=== PATIENT | male | born 1980 | race Hispanic/Latino ===

== ENCOUNTER 2019-07-08 08:05 | Outpatient (CLI) | payer OTHER ==
--- NOTE | 2019-07-08 10:29 | MRI ---
MRI OF THE CERVICAL SPINE WITHOUT CONTRAST: INDICATION: History of cervical radiculopathy. COMPARISON: None. FINDINGS: Visualized aspects of the posterior fossa appear within normal limits. The prevertebral and paravert ebral soft tissues are normal-appearing. No acute fracture is evident. Spinal alignment is preserve d. At C2-C3, there is no appreciable central canal or neural foraminal narrowing. At C3-4, there is no appreciable central canal or neural foraminal narrowing. At C4-5, there is no appreciable central canal or neural foraminal narrowing. There is a very small central disk protrusion. At C5-6, there is a small central disk protrusion, but no appreciable central canal or neural foramin al narrowing. At C6-7, there is no appreciable central canal or neural foraminal narrowing. At C7-T1, there is a left paracentral to left foraminal disk protrusion causing some mild ventral eff acement of the left ventral lateral spinal cord. There is severe narrowing of the left neural forami na with probable impingement of the exiting nerve root at C7-T1. This is best seen on images 11 and 10 of series 3. IMPRESSION: 1. Prominent left paracentral to left foraminal disk protrusion at C7-T1 causing some left ventrolat eral effacement of the spinal cord with severe narrowing of the left C7 neural foramen with probable impingement of the exiting nerve root. Recommend correlation with the patient's clinical symptoms. 2. Mild disk degenerative disease of the cervical spine. POS: [id number]
== END 2019-07-08 08:06 | disposition home or self-care (01) ==
LOC: TBSIIMAG 08:05
PROVIDERS: ATTEND Neurological Surgery
DX: M50.10 Cervical disc disorder with radiculopathy, unspecified cervical region (principal); M50.23 Other cervical disc displacement, cervicothoracic region; M48.02 Spinal stenosis, cervical region
CPT/HCPCS: 72141

== ENCOUNTER 2021-03-12 15:51 | Inpatient (IN) | payer OTHER, SELFPAY ==
[2021-03-12 16:36] LABS: ALT (SGPT) 23 U/L (8-55); AST (SGOT) 16 U/L (5-34); Albumin 4.7 g/dL (3.5-5.0); Alkaline Phosphatase 102 U/L (40-110); Anion Gap 18 mmol/L (10-20); BUN (Urea Nitrogen) 19 mg/dL (8.9-20.6); Bilirubin, Total 0.5 mg/dL (0.2-1.2); Calc. Creatinine Clearance 0 mL/min (70-130); Carbon Dioxide 24 mmol/L (22-29); Chloride 104 mmol/L (98-107); Glucose 108 mg/dL (70-105); Potassium 4.3 mmol/L (3.5-5.1); Protein, Total 8.7 g/dL (6.0-8.3); Sodium 142 mmol/L (136-145)
[2021-03-12 17:20] LABS: Prothrombin Time 13.8 sec (12.0-14.7)
[2021-03-12 17:22] LABS: PTT 34.2 sec (22.9-36.1)
[2021-03-12] MEDS ORDERED: Piperacillin/Tazobactam 4.5 GM VIAL ONE (17:23)
[2021-03-12 17:35] LABS: #Lymphocytes 2.4 thou/uL (1.20-3.40); #Monocytes 0.8 thou/uL (0.11-0.59); #Neutrophils 6.5 thou/uL (1.40-6.50); %Eosinophils 0.2 % (0.0-10.0); %Lymphocytes 24.4 % (21.0-51.0); %Monocytes 8.2 % (0.0-10.0); %Neutrophils 67.2 % (42.0-75.0); Hemoglobin 15.3 g/dL (14.0-18.0); Mean Corpuscular HGB CONC 32.8 g/dL (32.0-36.0); Mean Corpuscular Hemoglobin 29.3 pg (27.0-31.0); Mean Corpuscular Volume 89.4 fL (78.0-98.0); Mean Platelet Volume 8.5 fL (7.4-10.4); Platelet Count 244 thou/uL (130-400); RBC Distribution Width 12.6 % (11.5-14.5); White Blood Cell (WBC) Count 9.7 thou/uL (4.8-10.8)
[2021-03-12] MEDS ORDERED: Bupivacaine PF 0.5% 30 ML VIAL ONE (17:51)
[2021-03-12] MEDS ORDERED: Xylocaine 1% w/ Epi 1:100K 10 ML VIAL ONE (17:51)
[2021-03-12] MEDS ORDERED: Fentanyl 100 MCG/2 ML VIAL ONE ×2 (18:04→19:54)
[2021-03-12] MEDS ORDERED: Succinylcholine 200 MG/10 ml SYRINGE FS ONE (18:32)
[2021-03-12] MEDS ORDERED: Rocuronium Bromide 10 MG/ML (10ML VIAL) ONE (18:32)
[2021-03-12] MEDS ORDERED: PROPOFOL 200 MG/20 ML VIAL ONE (18:32)
[2021-03-12] MEDS ORDERED: Ondansetron PF 4 MG/2 ML Vial ONE (18:32)
[2021-03-12] MEDS ORDERED: Ketorolac Tromethamine 30 MG/ML VIAL ONE (18:32)
[2021-03-12] MEDS ORDERED: Dexamethasone 20 MG/5 ML VIAL ONE (18:32)
[2021-03-12] MEDS ORDERED: Lidocaine 1% PF 5 ML VIAL ONE (18:32)
[2021-03-12 18:53] LABS: SARS-CoV-2 NAA Rapid Test Not Detected (NotDetected)
[2021-03-12] MEDS ORDERED: SUGAMMADEX SODIUM 200 MG/2 ML VIAL ONE (18:58)
[2021-03-12] MEDS ORDERED: Ondansetron HCl/PF 4 MG/2 ML Vial IVP PRN (19:19)
[2021-03-12] MEDS ORDERED: Promethazine HCl 25 MG/ML VIAL IM PRN (19:19)
[2021-03-12] MEDS ORDERED: Morphine Sulfate 2 MG/ML SYRINGE SLOW IVP PRN (19:19)
[2021-03-12] MEDS ORDERED: PACU-Morphine 4MG/ML VIAL SLOW IVP PRN (19:19)
[2021-03-12] MEDS ORDERED: Meperidine HCl/PF 25 MG/ML VIAL SLOW IVP PRN (19:19)
[2021-03-12] MEDS ORDERED: HYDROmorphone 2 MG/ML VIAL SLOW IVP PRN (19:19)
[2021-03-12] MEDS ORDERED: Promethazine HCl 25 MG/ML VIAL IVPB PRN (19:19)
[2021-03-12] MEDS ORDERED: hydrALAZINE 20 MG/ML VIAL SLOW IVP PRN (19:35)
[2021-03-12] MEDS ORDERED: Ondansetron PF 4 MG/2 ML Vial IVP PRN (19:35)
[2021-03-12] MEDS ORDERED: Morphine 4 MG/ML VIAL SLOW IVP PRN ×2 (19:35)
[2021-03-12] MEDS ORDERED: Ondansetron ODT 4 MG TAB PO PRN (19:35)
[2021-03-12] MEDS ORDERED: Meperidine HCl/PF 25 MG/ML VIAL ONE (19:54)
[2021-03-12] MEDS ORDERED: D5 1/2 NS w/20 mEq KCL 1,000 ML ONE (21:53)
[2021-03-12] MEDS ORDERED: Piperacillin/Tazobactam 3.375 GM VIAL ONE (21:59)
[2021-03-12] MEDS ORDERED: Sodium Chloride 0.9% 100 ML ONE (21:59)
[2021-03-12] MEDS: D5 1/2 NS w/20 mEq KCL 1,000 ML IV SCH (22:28)
[2021-03-12] MEDS: Piperacillin/Tazobactam 3.375 GM in Sodium Chloride 0.9% 100 ML IVPB SCH (22:28)
[2021-03-12] MEDS: Enoxaparin Sodium 40 MG/0.4 ML SYRINGE SC SCH (23:00)
[2021-03-13] MEDS ORDERED: Morphine 4 MG/ML VIAL ONE (02:20)
[2021-03-13] MEDS ORDERED: Sodium Chloride 0.9% 10 ML ONE ×2 (02:20→09:55)
[2021-03-13] MEDS ORDERED: Piperacillin/Tazobactam 3.375 GM VIAL ONE ×2 (05:45→13:59)
[2021-03-13] MEDS: Piperacillin/Tazobactam 3.375 GM in Sodium Chloride 0.9% 100 ML IVPB SCH ×3 (06:16→21:15)
[2021-03-13 06:53] LABS: #Lymphocytes 1.6 thou/uL (1.20-3.40); #Monocytes 0.7 thou/uL (0.11-0.59); #Neutrophils 9.3 thou/uL (1.40-6.50); %Basophils 0.3 % (0.0-1.0); %Eosinophils 0.1 % (0.0-10.0); %Lymphocytes 13.7 % (21.0-51.0); %Monocytes 6.1 % (0.0-10.0); %Neutrophils 79.8 % (42.0-75.0); Hemoglobin 13.6 g/dL (14.0-18.0); Mean Corpuscular HGB CONC 33.7 g/dL (32.0-36.0); Mean Corpuscular Hemoglobin 30.2 pg (27.0-31.0); Mean Corpuscular Volume 89.6 fL (78.0-98.0); Mean Platelet Volume 8.3 fL (7.4-10.4); Platelet Count 208 thou/uL (130-400); RBC Distribution Width 12.3 % (11.5-14.5); White Blood Cell (WBC) Count 11.6 thou/uL (4.8-10.8)
[2021-03-13] MEDS ORDERED: Ketorolac Tromethamine 30 MG/ML VIAL ONE (08:48)
[2021-03-13] MEDS: Pantoprazole 40 MG VIAL IVP SCH (09:38)
[2021-03-13] MEDS: D5 1/2 NS w/20 mEq KCL 1,000 ML IV SCH ×3 (15:00→21:15)
[2021-03-13] MEDS: Ketorolac Tromethamine 30 MG/ML VIAL IVP PRN ×2 (15:18→21:14)
[2021-03-13 15:24] VITALS: BMI 24.0
[2021-03-13] MEDS: Enoxaparin Sodium 40 MG/0.4 ML SYRINGE SC SCH (21:14)
[2021-03-14] MEDS: Piperacillin/Tazobactam 3.375 GM in Sodium Chloride 0.9% 100 ML IVPB SCH ×2 (05:15→14:57)
[2021-03-14] MEDS: Ketorolac Tromethamine 30 MG/ML VIAL IVP PRN (05:16)
[2021-03-14] MEDS: D5 1/2 NS w/20 mEq KCL 1,000 ML IV SCH ×2 (05:16→14:58)
[2021-03-14] MEDS: Pantoprazole 40 MG VIAL IVP SCH (10:07)
[2021-03-14] MEDS ORDERED: Acetaminophen 500 MG TAB PO PRN (14:44)
[2021-03-14] MEDS ORDERED: Ibuprofen 600 MG TAB PO PRN (14:44)
[2021-03-14 16:35] VITALS: BP 133/82; TEMP 98.7
[2021-03-14] MEDS ORDERED: Amoxicillin/Potassium Clav 500 MG TAB PO SCH (21:00)
== END 2021-03-14 16:59 | disposition home or self-care (01) | DRG 339 ==
LOC: ERS 15:51 → SDC 18:48 → PACU-TCU 19:35 → SURG A 03-13 14:47
PROVIDERS: ADMIT Specialist; ATTEND Specialist
PROC: 0DTJ4ZZ Resection of Appendix, Percutaneous Endoscopic Approach (ICD-10-PCS; principal; 2021-03-12)
DX: K35.33 Acute appendicitis with perforation, localized peritonitis, and gangrene, with abscess (principal); K57.92 Diverticulitis of intestine, part unspecified, without perforation or abscess without bleeding; Z20.822 Contact with and (suspected) exposure to COVID-19
CPT/HCPCS: 36415; 74177; 80053; 85025; 85610; 85730; 87040; 88304; 96365; A4649; C9113; J1100; J1650; J1885; J2175; J2270; J2405; J2543; J2704; J3010; J3480; J3490; S0020; U0002

== ENCOUNTER 2023-07-12 15:43 | Inpatient (IN) | payer OTHER ==
[2023-07-12 20:08] VITALS: BMI 24.5
[2023-07-15 08:31] VITALS: BP 121/71; TEMP 98.5
== END 2023-07-15 09:45 | disposition home or self-care (01) | DRG 392 ==
LOC: T4-A 17:48
PROVIDERS: ADMIT Family Medicine; ATTEND Internal Medicine
DX: K57.20 Diverticulitis of large intestine with perforation and abscess without bleeding (principal); Z79.899 Other long term (current) drug therapy; Z90.49 Acquired absence of other specified parts of digestive tract
CPT/HCPCS: 36415; 80048; 85025; J2272; J2405; J2543; J3490; J7050

== ENCOUNTER 2023-08-08 09:07 | Inpatient (IN) | payer OTHER ==
[2023-08-08] MEDS ORDERED: Morphine 4 MG/ML VIAL ONE (09:44)
[2023-08-08] MEDS ORDERED: Ondansetron PF 4 MG/2 ML Vial ONE (09:44)
[2023-08-08 10:37] LABS: #Basophils Less than 0.03 10x3/uL (0.0-0.2); #Eosinphils Less than 0.03 10x3/uL (0.0-0.7); %Basophils 0.2 % (0.0-1.0); %Eosinophils 0.2 % (0.0-10.0); %Lymphocytes 10.5 % (21.0-51.0); %Monocytes 10.6 % (0.0-10.0); %Neutrophils 78.2 % (42.0-75.0); Hematocrit 42.9 % (42.0-52.0); Mean Corpuscular Hemoglobin 29.4 pg (27.0-31.0); Mean Platelet Volume 11.6 fL (7.4-10.4); Platelet Count 301 10x3/uL (130-400); RBC Distribution Width 13.1 % (11.5-14.5); Red Blood Cell (RBC) Count 5.11 mill/uL (4.70-6.10)
[2023-08-08 10:48] LABS: ALT (SGPT) 18 U/L (8-55); AST (SGOT) 15 U/L (5-34); Albumin 4.1 g/dL (3.5-5.0); Alkaline Phosphatase 80 U/L (40-110); Anion Gap 22 mmol/L (10-20); BUN (Urea Nitrogen) 25 mg/dL (8.9-20.6); Bilirubin, Total 0.5 mg/dL (0.2-1.2); Calc. Creatinine Clearance 0 mL/min (70-130); Calcium 10.1 mg/dL (7.8-10.44); Carbon Dioxide 19 mmol/L (22-29); Chloride 100 mmol/L (98-107); Estimated GFR 91; Globulin 4.8 g/dL (2.4-3.5); Glucose 211 mg/dL (70-105); Lipase 90 U/L (8-78); Potassium 3.8 mmol/L (3.5-5.1); Protein, Total 8.9 g/dL (6.0-8.3); Sodium 137 mmol/L (136-145)
[2023-08-08] MEDS ORDERED: Piperacillin/Tazobactam 4.5 GM VIAL ONE (11:13)
[2023-08-08] MEDS ORDERED: Sodium Chloride 0.9% 100 ML ONE (11:13)
[2023-08-08] MEDS ORDERED: Iopamidol-370 76% 500 ML MDV (1 ML CHARGE) ONE (12:51)
[2023-08-08] MEDS: Morphine 4 MG/ML VIAL SLOW IVP PRN (13:47)
[2023-08-08] MEDS: Ondansetron ODT 4 MG TAB PO PRN (13:47)
[2023-08-08] MEDS: Acetaminophen 500 MG TAB PO PRN (13:48)
[2023-08-08] MEDS: Sodium Chloride 0.9% 1,000 ML IV SCH (13:56)
[2023-08-08 14:05] VITALS: BMI 21.5
[2023-08-08 14:22] LABS: Lactic Acid 0.7 mmol/L (0.5-2.2)
[2023-08-08] MEDS: HYDROcodone/Acetaminophen 5/325 mg Tablet PO SCH (17:27)
[2023-08-08] MEDS ORDERED: Piperacillin/Tazobactam 4.5 GM in Sodium Chloride 0.9% 100 ML IVPB SCH (18:00)
[2023-08-08] MEDS: Piperacillin/Tazobactam 3.375 GM in Sodium Chloride 0.9% 100 ML IVPB SCH (20:06)
[2023-08-08] MEDS: Morphine 4 MG/ML VIAL SLOW IVP SCH (23:50)
[2023-08-09 07:07] LABS: Hemoglobin 12.9 g/dL (14.0-18.0); Mean Corpuscular HGB CONC 33.9 g/dL (32.0-36.0); Mean Corpuscular Hemoglobin 29.8 pg (27.0-31.0); Mean Corpuscular Volume 87.8 fL (78.0-98.0); Mean Platelet Volume 11.1 fL (7.4-10.4); Platelet Count 236 10x3/uL (130-400); RBC Distribution Width 13.4 % (11.5-14.5); Red Blood Cell (RBC) Count 4.33 mill/uL (4.70-6.10)
[2023-08-09 07:34] LABS: ALT (SGPT) 8 U/L (8-55); AST (SGOT) 14 U/L (5-34); Albumin 3.1 g/dL (3.5-5.0); Alkaline Phosphatase 67 U/L (40-110); Anion Gap 16 mmol/L (10-20); BUN (Urea Nitrogen) 16 mg/dL (8.9-20.6); Bilirubin, Total 0.4 mg/dL (0.2-1.2); Calc. Creatinine Clearance 114 mL/min (70-130); Calcium 9.2 mg/dL (7.8-10.44); Carbon Dioxide 21 mmol/L (22-29); Chloride 106 mmol/L (98-107); Estimated GFR 113; Globulin 3.8 g/dL (2.4-3.5); Glucose 116 mg/dL (70-105); Potassium 4.1 mmol/L (3.5-5.1); Protein, Total 6.9 g/dL (6.0-8.3); Sodium 139 mmol/L (136-145)
[2023-08-09 08:02] LABS: Band 26 % (5-11); Lymphocytes 15 % (21-51); Monocytes 15 % (0-10); Neutrophil 45 % (42-75); Platelet Adequacy Comment Platelets Normal; Polychromasia SLIGHT = 2-3 cells HPF (0-2)
[2023-08-09] MEDS: Polyethylene Glycol 3350 17 GM Packet PO SCH (09:29)
[2023-08-09] MEDS: Ondansetron PF 4 MG/2 ML Vial IVP PRN (13:22)
[2023-08-09] MEDS: HYDROcodone/Acetaminophen 5/325 mg Tablet PO PRN (13:23)
[2023-08-10] MEDS: Sodium Chloride 0.9% 1,000 ML IV SCH (10:13)
[2023-08-11 05:38] LABS: Hematocrit 36.6 % (42.0-52.0); Hemoglobin 12.4 g/dL (14.0-18.0); Mean Corpuscular HGB CONC 33.9 g/dL (32.0-36.0); Mean Corpuscular Hemoglobin 28.7 pg (27.0-31.0); Mean Corpuscular Volume 84.7 fL (78.0-98.0); Mean Platelet Volume 10.9 fL (7.4-10.4); Platelet Count 249 10x3/uL (130-400); RBC Distribution Width 13.2 % (11.5-14.5); Red Blood Cell (RBC) Count 4.32 mill/uL (4.70-6.10)
[2023-08-11 05:56] LABS: Anion Gap 13 mmol/L (10-20); BUN (Urea Nitrogen) 10 mg/dL (8.9-20.6); Calc. Creatinine Clearance 121 mL/min (70-130); Calcium 8.9 mg/dL (7.8-10.44); Carbon Dioxide 24 mmol/L (22-29); Chloride 106 mmol/L (98-107); Estimated GFR 115; Glucose 110 mg/dL (70-105); Potassium 3.3 mmol/L (3.5-5.1); Sodium 140 mmol/L (136-145)
[2023-08-11] MEDS: Potassium Bicarbonate/Cit Ac 20 MEQ TAB PO SCH (09:03)
[2023-08-12 08:07] LABS: Hematocrit 37.9 % (42.0-52.0); Hemoglobin 12.7 g/dL (14.0-18.0); Mean Corpuscular HGB CONC 33.5 g/dL (32.0-36.0); Mean Corpuscular Hemoglobin 28.9 pg (27.0-31.0); Mean Corpuscular Volume 86.3 fL (78.0-98.0); Mean Platelet Volume 10.5 fL (7.4-10.4); Platelet Count 294 10x3/uL (130-400); RBC Distribution Width 13.2 % (11.5-14.5); Red Blood Cell (RBC) Count 4.39 mill/uL (4.70-6.10)
[2023-08-12 08:40] LABS: Band 5 % (5-11); Eosinophils 1 % (0-10); Large Platelets 2.9 % (0-5); Lymphocytes 16 % (21-51); Monocytes 10 % (0-10); Neutrophil 60 % (42-75); Platelet Adequacy Comment Platelets Normal; Reactive Lymphocytes 5 % (0-10); Target Cells MODERATE= 6-15 cells HPF (0-1)
[2023-08-12] MEDS ORDERED: Sodium Bicarbonate 2.5 MEQ/5 ML SDV ONE (12:59)
[2023-08-12] MEDS ORDERED: Lidocaine 1% PF 5 ML VIAL ONE (12:59)
[2023-08-13 16:22] VITALS: BP 134/82; TEMP 98.9
[2023-08-13] MEDS: Ertapenem 1 GM in Sodium Chloride 0.9% 100 ML IVPB SCH (16:25)
== END 2023-08-13 18:02 | disposition home or self-care (01) | DRG 392 ==
LOC: ERS 09:07 → T4-A 13:36 → OBSVTOIN 08-09 10:37
PROVIDERS: ADMIT Internal Medicine; ATTEND Hospitalist
PROC: 02HV33Z Insertion of Infusion Device into Superior Vena Cava, Percutaneous Approach (ICD-10-PCS; principal; 2023-08-12)
PROC: B518ZZA Fluoroscopy of Superior Vena Cava, Guidance (ICD-10-PCS; 2023-08-12)
PROC: B548ZZA Ultrasonography of Superior Vena Cava, Guidance (ICD-10-PCS; 2023-08-12)
DX: K57.20 Diverticulitis of large intestine with perforation and abscess without bleeding (principal); D64.9 Anemia, unspecified; Z79.899 Other long term (current) drug therapy; Z90.49 Acquired absence of other specified parts of digestive tract
CPT/HCPCS: 36415; 36569; 74177; 76937; 77001; 80048; 80053; 82010; 83605; 83690; 84145; 85025; 85027; 87040; 96361; 96374; 96375; 96376; C1751; G0378; J0780; J1335; J2270; J2405; J2543; J3490; J7050; Q0162; Q9967

== ENCOUNTER 2023-09-29 14:44 | Outpatient (CLI) | payer OTHER ==
[2023-09-29 15:34] LABS: #Basophils 0.02 10x3/uL (0.0-0.2); #Eosinphils 0.18 10x3/uL (0.0-0.5); #Monocytes 0.52 10x3/uL (0.0-1.1); %Basophils 0.3 % (0.0-2.0); %Eosinophils 2.6 % (0.0-6.0); %Lymphocytes 40.7 % (18.0-47.0); %Monocytes 7.6 % (0.0-10.0); %Neutrophils 48.2 % (40.0-75.0); Hematocrit 36.9 % (38.8-50.0); Hemoglobin 12.4 g/dL (13.5-17.5); Mean Corpuscular HGB CONC 33.6 g/dL (32.0-36.0); Mean Corpuscular Hemoglobin 29.5 pg (27.0-33.0); Mean Corpuscular Volume 87.9 fL (81.2-95.1); Mean Platelet Volume 10.9 fL (7.4-10.4); Platelet Count 301 10x3/uL (150-450); RBC Distribution Width 15.7 % (11.5-14.5); White Blood Cell (WBC) Count 6.9 10x3/uL (3.5-10.5)
[2023-09-29 16:01] LABS: Anion Gap 12 mmol/L (10-20); BUN (Urea Nitrogen) 17 mg/dL (8.9-20.6); Calc. Creatinine Clearance 0 mL/min (70-130); Carbon Dioxide 26 mmol/L (22-29); Chloride 107 mmol/L (98-107); Estimated GFR 112; Glucose 128 mg/dL (70-105); Potassium 4.3 mmol/L (3.5-5.1); Sodium 141 mmol/L (136-145)
[2023-09-29 20:11] LABS: Hemoglobin A1c 5.4 % (4.0-6.0)
== END 2023-09-29 14:45 | disposition home or self-care (01) ==
LOC: LABBT 14:44
PROVIDERS: ATTEND Surgery
DX: Z01.818 Encounter for other preprocedural examination (principal); K57.32 Diverticulitis of large intestine without perforation or abscess without bleeding
CPT/HCPCS: 80048; 83036; 85025; 93005; 93010